=== PATIENT | male | born 1955 | race Caucasian/White ===

== ENCOUNTER 2017-12-22 21:50 | Outpatient (CLI) | payer SELFPAY | END 2017-12-22 21:51 | disposition EMS.NT | LOC: EMS 21:50 | PROVIDERS: ATTEND Surgery | DX: R42 Dizziness and giddiness (principal); R53.1 Weakness ==

== ENCOUNTER 2019-02-24 17:39 | Outpatient (CLI) | payer SELFPAY | END 2019-02-24 17:40 | disposition EMS.NT | LOC: EMS 17:39 | PROVIDERS: ATTEND Surgery | DX: R07.89 Other chest pain (principal); S50.812A Abrasion of left forearm, initial encounter; S50.811A Abrasion of right forearm, initial encounter; V47.5XXA Car driver injured in collision with fixed or stationary object in traffic accident, initial encounter; Y92.414 Local residential or business street as the place of occurrence of the external cause ==